=== PATIENT | male | born 1985 | race African-American/Black ===

== ENCOUNTER 2019-04-08 09:02 | Day surgery (SDC) | payer BC ==
[~2019-04-08 09:02] MED LIST: Lactated Ringers 1,000 ML IV SCH; Sodium Chloride 0.9% 10 ML SDV IV PRN; Sodium Chloride 0.9% 10 ML Syringe FLUSH PRN; Sodium Chloride 0.9% 2.5 ML Syringe FLUSH PRN
--- NOTE | 2019-04-08 09:44 | PCM.PREANE ---
Preanesthetic Assessment - Anesthesia/Transfusion/Family Hx Anesthesia History: Prior Anesthesia Without Reaction Family History of Anesthesia Reaction: No Transfusion History: No Prior Transfusion(s) - Review of Systems General: No Symptoms Pulmonary: Other (snores) Cardiovascular: No Symptoms Neurological: No Symptoms Other: Reports: None - Physical Assessment NPO Status Date: 04/07/19 O2 Sat by Pulse Oximetry: 97 Respiratory Rate: 16 Vital Signs: Last Vital Signs Temp 98.4 F 04/08/19 09:38 Pulse 71 04/08/19 09:38 Resp 16 04/08/19 09:38 BP 170/77 H 04/08/19 09:38 Pulse Ox 97 04/08/19 09:38 Height: 6 ft 8 in Weight: 134.717 kg ASA Class: 2 Mental Status: Alert & Oriented x3 Airway Class: Mallampati = 1 Dentition: Reports: Normal Dentition ROM/Head Extension: Full Lungs: Clear to Auscultation, Normal Respiratory Effort Cardiovascular: Regular Rate, Regular Rhythm - Allergies Allergies/Adverse Reactions: Allergies Allergy/AdvReac Type Severity Reaction Status Date / Time mushroom Allergy Itching Verified 04/02/19 15:47 - Blood Blood Available: No - Anesthesia Plan Pre-Op Medication Ordered: None - Acknowledgements Anesthesia Type Planned: General Anesthesia Pt an Appropriate Candidate for the Planned Anesthesia: Yes Alternatives and Risks of Anesthesia Discussed w Pt/Guardian: Yes Pt/Guardian Understands and Agrees with Anesthesia Plan: Yes Additional Comments: PMH: has FREDI- no use of CPAP- disc OS inst given, anxiety PLAN: mac/tiva PreAnesthesia Questionnaire HEENT History: Reports: Other (See Below) Other HEENT History: wears glasses Respiratory History: Reports: Other (See Below) Other Respiratory History: was tested for sleep apnea- "non-conclusive" Musculoskeletal History: Reports: Back Pain, Chronic Endocrine/Metabolic History: Reports: Obesity/BMI 30+ Dermatologic History: Reports: Other (See Below) Other Dermatologic History: Pityriasis Vesicolor - Past Surgical History Musculoskeletal Surgical History: Reports: Other (See Below) Other Musculoskeletal Surgeries/Procedures:: tendon repair on right knee - SUBSTANCE USE Smoking Status *Q: Never Smoker Recreational Drug Use History: No - HOME MEDS Home Medications: Home Meds . [No Known Home Meds] 04/02/19 [History] - CURRENT (IN HOUSE) MEDS Current Meds: Current Medications Lactated Ringer's (Ringers, Lactated) 1,000 mls @ 125 mls/hr IV ASDIRECTED YFN Last Admin: 04/08/19 09:37 Dose: 125 mls/hr Sodium Chloride (Saline Flush) 10 ml FLUSH ASDIRECTED PRN PRN Reason: Keep Vein Open Sodium Chloride (Saline Flush) 2.5 ml FLUSH ASDIRECTED PRN PRN Reason: Keep Vein Open Sodium Chloride (Saline Flush) 10 ml FLUSH ASDIRECTED PRN PRN Reason: Keep Vein Open Sodium Chloride (Saline Flush) 2.5 ml FLUSH ASDIRECTED PRN PRN Reason: Keep Vein Open Sodium Chloride (Normal Saline) 10 ml IV ASDIRECTED PRN PRN Reason: IV Use
[2019-04-08] MEDS ORDERED: Lidocaine 2% 5 ML SDV ONE (09:47)
[2019-04-08] MEDS ORDERED: Midazolam 1 MG/ML 2 ML SDV ONE (09:47)
[2019-04-08] MEDS ORDERED: fentaNYL 100 MCG/2 ML SDV ONE (09:47)
[2019-04-08] MEDS ORDERED: Propofol 200 MG/20 ML SDV ONE (09:47)
[2019-04-08] MEDS ORDERED: Glycopyrrolate 0.2 MG/ML SDV ONE (10:40)
--- NOTE | 2019-04-08 11:14 | PCM.OPNOTE ---
- General Post-Op/Procedure Note Date of Surgery/Procedure: 04/08/19 Operative Procedure(s): Diagnostic colonoscopy Findings: Normal colonoscopy Pre Op Diagnosis: LLQ pain, BRBPR Post-Op Diagnosis: Normal colonoscopy Anesthesia Technique: ROCCO Primary Surgeon: Meghana Nicolas Condition: Good
--- NOTE | 2019-04-08 11:34 | PCM48HPAN ---
Post Anesthesia Note - EVALUATION WITHIN 48HRS OF ANESTHETIC Vital Signs in Normal Range: Yes Patient Participated in Evaluation: Yes Respiratory Function Stable: Yes Airway Patent: Yes Cardiovascular Function Stable: Yes Hydration Status Stable: Yes Pain Control Satisfactory: Yes Nausea and Vomiting Control Satisfactory: Yes Mental Status Recovered: Yes Resp Rate: 13
--- NOTE | 2019-04-08 11:34 | PCM.POSTAN ---
POST ANESTHESIA ASSESSMENT - MENTAL STATUS Mental Status: Alert, Oriented - RESPIRATORY Respiratory Status: Respiratory Rate WNL, Airway Patent, O2 Saturation Stable - CARDIOVASCULAR CV Status: Pulse Rate WNL, Blood Pressure Stable - GASTROINTESTINAL GI Status: No Symptoms - POST OP HYDRATION Hydration Status: Adequate & Stable
--- NOTE | 2019-04-09 10:34 | OR ---
SURGEON: MEGHANA NICOLAS MD DATE OF PROCEDURE: 04/08/2019 PREOPERATIVE DIAGNOSES: 1. Left lower quadrant pain. 2. Bright red bleeding per rectum. POSTOPERATIVE DIAGNOSIS: Normal colonoscopy. PROCEDURE PERFORMED: Diagnostic colonoscopy. PRIMARY SURGEON: Endoscopist, Meghana Nicolas MD. ANESTHESIA: MAC. INSTRUMENT USED: Olympus colonoscope. EXTENT OF EXAM: To the cecum. PREPARATION: Good. LIMITATIONS: None. INDICATION FOR EXAMINATION: The patient is a 34-year-old male, who recently presented to the emergency room with left lower quadrant pain and bright red bleeding per rectum with bowel movements. A CT scan was performed which was normal. The patient came to see me. After discussion of his symptoms, the decision was made to proceed with diagnostic colonoscopy. I explained the procedure, expected perioperative course, and risks including bleeding, infection, or damage to surrounding structures including perforation. The patient verbalized understanding and wishes to proceed. PROCEDURE IN DETAIL: The patient was brought into the endoscopy suite and placed in a left lateral decubitus position. A time-out was completed verifying the patient's name, age, date of , allergies, and procedure to be performed. Monitored anesthesia care was induced and continuous oxygen was provided via nasal cannula throughout the procedure. After adequate sedation was achieved, a digital rectal exam was performed. This exam was within normal limits. A well lubricated colonoscope was inserted in the rectum and advanced under direct visualization to the level of the cecum. The cecum was identified by both visual and anatomic landmarks. A photograph was taken of the cecal cap, as well as with the scope retroflexed within the cecum. The scope was then straightened out and fully withdrawn while examining the color, texture, anatomy, and integrity of the mucosa from the cecum to the anal canal. The findings were consistent with normal colonic mucosa. The scope was brought into the rectum and retroflexed to allow visualization of the anal canal opening. It appeared normal, and a photograph was taken. The scope was straightened out and fully withdrawn. The cecum to anus time was 7 minutes. The patient tolerated the procedure well and was taken to PACU in stable condition. ENDOSCOPIC DIAGNOSIS: Normal colonoscopy. RECOMMENDATIONS: The patient's symptoms are likely due to some mild constipation. He can take [id number]-[id number] medications as needed. He will need a repeat colonoscopy when he turns 44 for normal screening purposes. NAIMA SANTACRUZ /[id number]
== END 2019-04-08 12:50 | disposition home or self-care (01) ==
LOC: MW.SDS 09:02
PROVIDERS: ATTEND Surgery
DX: R10.32 Left lower quadrant pain (principal); K62.5 Hemorrhage of anus and rectum; E78.00 Pure hypercholesterolemia, unspecified; K42.9 Umbilical hernia without obstruction or gangrene; G47.33 Obstructive sleep apnea (adult) (pediatric); Z91.018 Allergy to other foods
CPT/HCPCS: 45378; J2001; J2250; J2704; J3010; J3490; J7120; 00811

== ENCOUNTER 2024-10-19 09:18 | Day surgery (SDC) | payer BC ==
[2024-10-19] MEDS: Lactated Ringers 1,000 ML IV SCH (09:45)
[2024-10-19] MEDS ORDERED: Lidocaine 2% 5 ML SDV ONE (11:00)
[2024-10-19] MEDS ORDERED: propofoL 500 MG/50 ML 50 ML ONE ×2 (11:01→12:00)
[2024-10-19] MEDS ORDERED: Succinylcholine/Sod PF 100 MG/5 ML SYRINGE IV ONE (12:06)
[2024-10-19] MEDS ORDERED: Rocuronium Bromide 50 MG/5 ML Syringe ONE ×2 (12:06→12:09)
[2024-10-19] MEDS ORDERED: Glycopyrrolate 0.2 MG/ML SDV ONE (12:11)
[2024-10-19] MEDS ORDERED: Sugammadex Sodium 200 MG/2 ML VIAL IV ONE ×2 (12:21→12:35)
== END 2024-10-19 13:40 | disposition home or self-care (01) ==
LOC: MW.SDS 09:18
PROVIDERS: ATTEND Surgery
DX: K29.50 Unspecified chronic gastritis without bleeding (principal); B96.81 Helicobacter pylori [H. pylori] as the cause of diseases classified elsewhere; I10 Essential (primary) hypertension; E78.00 Pure hypercholesterolemia, unspecified; F41.9 Anxiety disorder, unspecified; Z79.899 Other long term (current) drug therapy
CPT/HCPCS: 43239; 45380; J0330; J1596; J2704; J3490; J7120